=== PATIENT | female | born 1950 | race Caucasian/White ===

== ENCOUNTER 2017-09-29 03:01 | Emergency (ER) | payer SELFPAY ==
[~2017-09-29] VITALS: Ht 162.6 cm; Wt 75.7 kg
[2017-09-29 03:07] VITALS: Ht 162.6 cm; Wt 75.7 kg
[2017-09-29 05:13] VITALS: BP 133/69
== END 2017-09-29 05:26 | disposition home or self-care (01) ==
LOC: ED 03:01
DX: R04.0 Epistaxis (principal); Z88.0 Allergy status to penicillin; Z88.6 Allergy status to analgesic agent

== ENCOUNTER 2017-09-29 19:14 | Emergency (ER) | payer SELFPAY ==
[2017-09-29 19:46] VITALS: BP 165/64
== END 2017-09-29 19:46 | disposition home or self-care (01) ==
LOC: ED 19:14
DX: R04.0 Epistaxis (principal)

== ENCOUNTER 2018-03-25 08:05 | Inpatient (IN) | payer MEDICAID ==
[~2018-03-25] VITALS: Ht 152.4 cm; Wt 66.7 kg
[~2018-03-25 08:05] MED LIST: BD LACTINEX1.4 MG PO; CIPRO500 MG PO
[2018-03-25 08:09] VITALS: Ht 152.4 cm; Wt 66.7 kg
[2018-03-25 08:49] LABS: BASOPHIL % 0.4 % (0-2); PLATELET COUNT 348 x10^3mcL (130-400); RED CELL DISTRIBUTION WIDTH 13.9 % (11.5-14.5)
[2018-03-25 09:01] LABS: CARBON DIOXIDE 24.3 mmol/L (21-32); CHLORIDE SERUM 103 mmol/L (98-107); CREATININE SERUM 0.6 mg/dL (0.6-1.0); GFR1 > 60 mL/min; GLUCOSE SERUM 106 mg/dL (74-106); POTASSIUM SERUM 3.6 mmol/L (3.5-5.1); SODIUM SERUM 138 mmol/L (136-145)
[2018-03-25 09:13] LABS: ALBUMIN 3.6 g/dL (3.4-5.0); ALKALINE PHOSPHATASE 113 U/L (46-116); ALT/SGPT 19 U/L (14-59); AST/SGOT 15 U/L (15-37); BILIRUBIN TOTAL 0.3 mg/dL (0.20-1.00); FREE T4 0.97 ng/dL (0.76-1.46); LIPASE 178 IU/L (73-393); TOTAL PROTEIN, SERUM 7.9 g/dL (6.4-8.2)
[2018-03-25 09:18] LABS: CALCIUM 9.5 mg/dL (8.5-10.1)
[2018-03-25 09:50] LABS: microscopic required? YES; urine erythrocyte 2+ (NEGATIVE)
[2018-03-25 12:34] VITALS: BP 143/61
[2018-03-25 12:34] LABS: MAGNESIUM 2.1 mg/dL (1.8-2.4); PHOSPHOROUS 3.7 mg/dL (2.5-4.9)
[2018-03-25 13:37] LABS: CHOLESTEROL/HDL RATIO 2.7
[2018-03-25 14:15] VITALS: BP 152/71
[2018-03-25 14:49] LABS: AMPHETAMINE QUAL UR NONE DETECTED (See below)
[2018-03-25 17:32] VITALS: BP 138/65
[2018-03-25 21:08] VITALS: BP 134/71
[2018-03-26 05:48] VITALS: BP 137/71
[2018-03-26 06:25] LABS: BASOPHIL % 0.5 % (0-2); PLATELET COUNT 357 x10^3mcL (130-400); RED CELL DISTRIBUTION WIDTH 14.1 % (11.5-14.5)
[2018-03-26 06:39] LABS: CALCIUM 9.4 mg/dL (8.5-10.1); CARBON DIOXIDE 26.8 mmol/L (21-32); CHLORIDE SERUM 105 mmol/L (98-107); CREATININE SERUM 0.7 mg/dL (0.6-1.0); GFR1 > 60 mL/min; GLUCOSE SERUM 96 mg/dL (74-106); MAGNESIUM 2.1 mg/dL (1.8-2.4); POTASSIUM SERUM 4.1 mmol/L (3.5-5.1); SODIUM SERUM 141 mmol/L (136-145)
[2018-03-26 09:11] VITALS: BP 115/64
[2018-03-26 13:25] VITALS: BP 128/65
[2018-03-26 17:49] VITALS: BP 132/72
[2018-03-26 21:28] VITALS: BP 148/81
[2018-03-27 05:02] VITALS: BP 144/60
[2018-03-27 06:31] LABS: BASOPHIL % 0.5 % (0-2); PLATELET COUNT 332 x10^3mcL (130-400); RED CELL DISTRIBUTION WIDTH 13.9 % (11.5-14.5)
[2018-03-27 07:06] LABS: CARBON DIOXIDE 26.1 mmol/L (21-32); CHLORIDE SERUM 106 mmol/L (98-107); CREATININE SERUM 0.6 mg/dL (0.6-1.0); GFR1 > 60 mL/min; GLUCOSE SERUM 92 mg/dL (74-106); MAGNESIUM 1.9 mg/dL (1.8-2.4); PHOSPHOROUS 2.7 mg/dL (2.5-4.9); POTASSIUM SERUM 3.9 mmol/L (3.5-5.1); SODIUM SERUM 140 mmol/L (136-145)
[2018-03-27 08:51] VITALS: BP 182/69
[2018-03-27 10:11] VITALS: BP 146/62
[2018-03-27 10:53] VITALS: BP 146/62
[2018-03-27] MEDS ORDERED: LEV500 PO (11:23)
[2018-03-27] MEDS ORDERED: MECLIZINE HYD12.5 MG PO (11:24)
[2018-03-27 13:09] VITALS: BP 149/62
== END 2018-03-27 14:22 | disposition home or self-care (01) | DRG 48 ==
LOC: ED 08:05 → DU 10:39
PROVIDERS: Emergency Medicine; Internal Medicine
DX: G90.8 Other disorders of autonomic nervous system (principal); N17.0 Acute kidney failure with tubular necrosis; N39.0 Urinary tract infection, site not specified; Z87.440 Personal history of urinary (tract) infections; N81.4 Uterovaginal prolapse, unspecified; Z68.28 Body mass index [BMI] 28.0-28.9, adult; E78.5 Hyperlipidemia, unspecified; N18.9 Chronic kidney disease, unspecified
CPT/HCPCS: 83880; 84439; J1956; J2405; J7030; J8597; Q0092

== ENCOUNTER 2018-06-17 18:07 | Inpatient (IN) | payer OTHER ==
[~2018-06-17] VITALS: Ht 152.4 cm; Wt 58.6 kg
[~2018-06-17 18:07] MED LIST changes: +LEV500 PO; +MECLIZINE HYD12.5 MG PO
[2018-06-17 18:20] VITALS: Ht 152.4 cm; Wt 58.6 kg
[2018-06-17 18:56] LABS: CALCIUM 9.5 mg/dL (8.5-10.1); CARBON DIOXIDE 21.5 mmol/L (21-32); CHLORIDE SERUM 104 mmol/L (98-107); CREATININE SERUM 0.7 mg/dL (0.6-1.0); GFR1 > 60 mL/min; GLUCOSE SERUM 129 mg/dL (74-106); POTASSIUM SERUM 3.2 mmol/L (3.5-5.1); SODIUM SERUM 138 mmol/L (136-145)
[2018-06-17 18:59] LABS: BASOPHIL % 0.2 % (0-2); RED CELL DISTRIBUTION WIDTH 14.3 % (11.5-14.5)
[2018-06-17 19:01] LABS: ALKALINE PHOSPHATASE 109 U/L (46-116); ALT/SGPT 22 U/L (14-59); AST/SGOT 12 U/L (15-37); BILIRUBIN TOTAL 0.4 mg/dL (0.20-1.00); TOTAL PROTEIN, SERUM 8.3 g/dL (6.4-8.2)
[2018-06-17 19:02] LABS: PLATELET COUNT 518 x10^3mcL (130-400)
[2018-06-17 19:11] LABS: UA SPECIFIC GRAVITY <=1.005 (1.005-1.035); microscopic required? YES; urine erythrocyte 1+ (NEGATIVE)
[2018-06-17 20:32] LABS: CHOLESTEROL/HDL RATIO 3.2; PHOSPHOROUS 2.4 mg/dL (2.5-4.9)
[2018-06-17 20:42] LABS: FREE T4 1.2 ng/dL (0.76-1.46); FREE THYROXINE INDEX 2.9 ug/dL (1.4-4.5); T4(THYROXINE) 8.4 ug/dL (4.7-13.3)
[2018-06-17 20:52] VITALS: BP 141/60
[2018-06-17 21:19] LABS: T3 TOTAL 0.86 ng/mL
[2018-06-17 23:10] VITALS: BP 122/48
[2018-06-18 05:54] LABS: BASOPHIL % 0.1 % (0-2); RED CELL DISTRIBUTION WIDTH 14.2 % (11.5-14.5)
[2018-06-18 05:56] VITALS: BP 133/67
[2018-06-18 06:19] LABS: CALCIUM 9.1 mg/dL (8.5-10.1); CARBON DIOXIDE 25.8 mmol/L (21-32); CHLORIDE SERUM 109 mmol/L (98-107); CREATININE SERUM 0.7 mg/dL (0.6-1.0); GFR1 > 60 mL/min; GLUCOSE SERUM 111 mg/dL (74-106); MAGNESIUM 1.9 mg/dL (1.8-2.4); PHOSPHOROUS 2.6 mg/dL (2.5-4.9); POTASSIUM SERUM 4.6 mmol/L (3.5-5.1); SODIUM SERUM 143 mmol/L (136-145)
[2018-06-18 06:28] LABS: PLATELET COUNT 438 x10^3mcL (130-400)
[2018-06-18] MEDS ORDERED: LEVAQUIN750 MG PO (08:05)
[2018-06-18] MEDS ORDERED: LAC PO (08:05)
[2018-06-18 09:40] VITALS: BP 122/63
[2018-06-18 17:40] VITALS: BP 124/64
[2018-06-18 20:10] VITALS: BP 143/96
[2018-06-19 05:25] VITALS: BP 132/81
[2018-06-19 06:37] LABS: CALCIUM 9.4 mg/dL (8.5-10.1); CARBON DIOXIDE 27.2 mmol/L (21-32); CHLORIDE SERUM 107 mmol/L (98-107); CREATININE SERUM 0.6 mg/dL (0.6-1.0); GFR1 > 60 mL/min; GLUCOSE SERUM 89 mg/dL (74-106); POTASSIUM SERUM 3.7 mmol/L (3.5-5.1); SODIUM SERUM 142 mmol/L (136-145)
[2018-06-19 06:50] LABS: BASOPHIL % 0.2 % (0-2); PLATELET COUNT 432 x10^3mcL (130-400); RED CELL DISTRIBUTION WIDTH 14.6 % (11.5-14.5)
[2018-06-19 08:36] VITALS: BP 148/73
[2018-06-19 16:20] VITALS: BP 123/53
[2018-06-19 20:42] VITALS: BP 144/69
[2018-06-20 05:53] VITALS: BP 143/68
[2018-06-20 06:49] LABS: BASOPHIL % 0.1 % (0-2); RED CELL DISTRIBUTION WIDTH 14.3 % (11.5-14.5)
[2018-06-20 06:52] LABS: CALCIUM 9.9 mg/dL (8.5-10.1); CARBON DIOXIDE 26.7 mmol/L (21-32); CHLORIDE SERUM 106 mmol/L (98-107); CREATININE SERUM 0.7 mg/dL (0.6-1.0); GFR1 > 60 mL/min; GLUCOSE SERUM 93 mg/dL (74-106); POTASSIUM SERUM 4.1 mmol/L (3.5-5.1); SODIUM SERUM 142 mmol/L (136-145)
[2018-06-20 06:55] LABS: PLATELET COUNT 481 x10^3mcL (130-400)
[2018-06-20 08:53] VITALS: BP 128/86
[2018-06-20 11:00] LABS: UA SPECIFIC GRAVITY <=1.005 (1.005-1.035); microscopic required? YES; urine erythrocyte 1+ (NEGATIVE)
[2018-06-20 17:20] VITALS: BP 138/57
[2018-06-20 20:30] VITALS: BP 124/62
[2018-06-21 05:09] VITALS: BP 106/60
[2018-06-21 07:12] LABS: CALCIUM 10.1 mg/dL (8.5-10.1); CARBON DIOXIDE 27.4 mmol/L (21-32); CHLORIDE SERUM 100 mmol/L (98-107); CREATININE SERUM 0.7 mg/dL (0.6-1.0); GFR1 > 60 mL/min; GLUCOSE SERUM 95 mg/dL (74-106); POTASSIUM SERUM 4.2 mmol/L (3.5-5.1); SODIUM SERUM 133 mmol/L (136-145)
[2018-06-21 07:13] LABS: BASOPHIL % 0.1 % (0-2)
[2018-06-21 07:22] LABS: PLATELET COUNT 476 x10^3mcL (130-400); RED CELL DISTRIBUTION WIDTH 14.8 % (11.5-14.5)
[2018-06-21 08:45] VITALS: BP 109/58
[2018-06-21 18:26] VITALS: BP 158/70
[2018-06-21 18:55] VITALS: BP 135/65
[2018-06-21 19:10] VITALS: BP 112/49
[2018-06-21 21:36] VITALS: BP 111/62
[2018-06-22 05:24] VITALS: BP 141/66
[2018-06-22 09:09] LABS: BASOPHIL % 0.5 % (0-2); RED CELL DISTRIBUTION WIDTH 14.5 % (11.5-14.5)
[2018-06-22 09:14] LABS: CALCIUM 10.4 mg/dL (8.5-10.1); CARBON DIOXIDE 25.9 mmol/L (21-32); CHLORIDE SERUM 100 mmol/L (98-107); CREATININE SERUM 0.7 mg/dL (0.6-1.0); GFR1 > 60 mL/min; GLUCOSE SERUM 101 mg/dL (74-106); MAGNESIUM 2.1 mg/dL (1.8-2.4); PHOSPHOROUS 3.3 mg/dL (2.5-4.9); PLATELET COUNT 452 x10^3mcL (130-400); POTASSIUM SERUM 4.3 mmol/L (3.5-5.1); SODIUM SERUM 134 mmol/L (136-145)
[2018-06-22 09:37] VITALS: BP 99/51
[2018-06-22 17:37] VITALS: BP 114/62
[2018-06-22 20:21] VITALS: BP 119/57
[2018-06-23 05:29] VITALS: BP 98/58
[2018-06-23 08:52] LABS: BASOPHIL % 0.4 % (0-2); PLATELET COUNT 455 x10^3mcL (130-400); RED CELL DISTRIBUTION WIDTH 14.4 % (11.5-14.5)
[2018-06-23 09:00] LABS: CARBON DIOXIDE 26.7 mmol/L (21-32); CHLORIDE SERUM 101 mmol/L (98-107); CREATININE SERUM 0.8 mg/dL (0.6-1.0); GFR1 > 60 mL/min; GLUCOSE SERUM 101 mg/dL (74-106); MAGNESIUM 2.2 mg/dL (1.8-2.4); PHOSPHOROUS 3.2 mg/dL (2.5-4.9); POTASSIUM SERUM 4.2 mmol/L (3.5-5.1); SODIUM SERUM 136 mmol/L (136-145)
[2018-06-23 09:05] VITALS: BP 103/66
[2018-06-23] MEDS ORDERED: VANCOMYCIN2 GM/5001 IV (12:20)
[2018-06-23 12:22] VITALS: BP 103/66
== END 2018-06-23 13:17 | disposition short-term general hospital (02) | DRG 720 ==
LOC: ED 18:07 → MU 20:14
PROVIDERS: Emergency Medicine; Family Medicine
DX: A41.9 Sepsis, unspecified organism (principal); N17.0 Acute kidney failure with tubular necrosis; E44.0 Moderate protein-calorie malnutrition; N10 Acute pyelonephritis; E87.1 Hypo-osmolality and hyponatremia; E83.39 Other disorders of phosphorus metabolism; E11.65 Type 2 diabetes mellitus with hyperglycemia; E02 Subclinical iodine-deficiency hypothyroidism; E11.69 Type 2 diabetes mellitus with other specified complication; N93.9 Abnormal uterine and vaginal bleeding, unspecified; M46.47 Discitis, unspecified, lumbosacral region; M46.27 Osteomyelitis of vertebra, lumbosacral region; B95.1 Streptococcus, group B, as the cause of diseases classified elsewhere; E11.42 Type 2 diabetes mellitus with diabetic polyneuropathy; E78.1 Pure hyperglyceridemia; Z90.710 Acquired absence of both cervix and uterus; Z88.0 Allergy status to penicillin; Z88.6 Allergy status to analgesic agent; Z80.9 Family history of malignant neoplasm, unspecified; Z68.26 Body mass index [BMI] 26.0-26.9, adult
CPT/HCPCS: 84439; 97110-GP; 97116-GP; 97530-GP; J1885; J1956; J2270; J3010; J3370; J7030; J7040; Q0092; Q0163; Q9967